=== PATIENT | male | born 1945 | race Hispanic/Latino ===

== ENCOUNTER → 2017-09-17 | Outpatient (CLI) | payer MEDICARE | END | disposition home or self-care (01) | LOC: RAH 12:12 | PROVIDERS: ATTEND Family Medicine | DX: I82.412 Acute embolism and thrombosis of left femoral vein (principal); I82.432 Acute embolism and thrombosis of left popliteal vein; I82.492 Acute embolism and thrombosis of other specified deep vein of left lower extremity; E11.9 Type 2 diabetes mellitus without complications; E78.5 Hyperlipidemia, unspecified; E03.9 Hypothyroidism, unspecified; M81.0 Age-related osteoporosis without current pathological fracture; Z96.642 Presence of left artificial hip joint | CPT/HCPCS: 93971 ==

== ENCOUNTER 2024-07-10 15:47 | Emergency (ER) | payer MEDICARE ==
[~2024-07-10] VITALS: Ht 162.6 cm; Wt 79.4 kg
--- NOTE | 2024-07-10 16:05 | ERN ---
ED Note History of Present Illness Stated Complaint: CONSTIPATED X 3 DAYS Chief Complaint: Constipation Time Seen by MD: 15:50 Dictation: PATIENT IS A 78-YEAR-OLD MALE HERE WITH COMPLAINTS OF CONSTIPATION X3 DAYS WITH LEFT LOWER QUADRANT TENDERNESS. HE DENIES FEVER CHILLS NAUSEA VOMITING NO CHANGE IN URINATION AND NO FLANK PAIN. STATES HE HAS TRIED [id number] MEDICATIONS TO INCLUDE DULCOLAX SUPPOSITORY THAT HAS NOT WORKED. STATES WHEN HE HAD SEEN HIS DOCTOR IN THE PAST, HE WAS STARTED ON MIRALAX WHICH DONE NOW TO HE LP WITH THE CONSTIPATION. DENIES HISTORY OF DIVERTICULAR DISEASE. Allergies: Coded Allergies: No Known Drug Allergies (Unverified Allergy, 04/21/13) Past Medical History Past Medical History: Constipation, Diabetes-Type II, High Cholesterol, Heart Disease, Hypertension Surgical History: Other Surgical History Other: HIP REPLACEMENT RN Note Reviewed/Agreed w/PFSH: Yes Review of System Dictation CONSTITUTIONAL: NEGATIVE EXCEPT FOR HPI HEAD/FACE: NEGATIVE EXCEPT FOR HPI EENT: NEGATIVE EXCEPT FOR HPI RESPIRATORY: NEGATIVE EXCEPT FOR HPI GASTROINTESTINAL/ABDOMINAL: NEGATIVE EXCEPT FOR HPI CONSTIPATION WITH LEFT LOWER QUADRANT TENDERNESS GENITOURINARY: NEGATIVE EXCEPT FOR HPI MUSCULOSKELETAL: NEGATIVE EXCEPT FOR HPI INTEGUMENTARY: NEGATIVE EXCEPT FOR HPI NEUROLOGICAL/PSYCH: NEGATIVE EXCEPT FOR HPI HEMATOLOGIC/LYMPHATIC: NEGATIVE EXCEPT FOR HPI ALL SYSTEMS NEGATIVE, EXCEPT NOTED ABOVE. 13 POINT REVIEW OF SYSTEMS ASSESSED AND ALL NEGATIVE EXCEPT FOR ABOVE. Initial Vital Sign VS Vital Signs Date Time Temp Pulse Resp B/P (MAP) Pulse Ox O2 Delivery O2 Flow Rate FiO2 07/10/24 15:48 98.1 80 16 143/111 0 Room Air 0 07/10/24 16:15 21 Physical Exam Dictation VITAL SIGNS REVIEWED GENERAL APPEARANCE: ALERT, ORIENTED X 3, MILD ACUTE DISTRESS, WELL DEVELOPED, NOURISHED. HEAD AND FACE: NON-TRAUMATIC. EYES: PERRL, PINK CONJUNCTIVAS, EYELID NO TRAUMA, ANTERIOR CHAMBER WITH ARCUS SENILIS. EARS: PINNAS INTACT AND NO SIGNS OF TRAUMA OR ERYTHEMA EAR CANALS CLEAR AND NO DISCHARGE TM NO ERYTHEMA NOSE: NO DISCHARGE, NO BLEEDING. OROPHARYNX: MOUTH NORMAL, TONGUE PINK, PHARYNX CLEAR,NO ERYTHEMA, TONSILS NO EXUDATES, NO ABSCESSES NOTED, MUCOUS MEMBRANE MOIST NECK: SUPPLE, NON-TENDER, NO THYROMEGALY, NO MASSES, NO JVD, NO BRUITS BREAST:DEFERRED CHEST:NO TENDERNESS, NO CREPITUS, NO PARADOXICAL MOVEMENT, NO RETRACTIONS LUNGS:CLEAR, WELL-VENTILATED, SYMMETRIC, NO RALES, NO WHEEZING, NO RHONCHI, NO STRIDOR, GOOD BREATH SOUNDS BILATERALLY HEART: REGULAR RATE, REGULAR RHYTHM, NO MURMUR, NO GALLOPS VASCULAR: NO PERIPHERAL EDEMA, ABDOMEN: SOFT, POSITIVE BOWEL SOUNDS, NONDISTENDED, NO GUARDING, LEFT LOWER QUADRANT TENDERNESS WITH DIMINISHED BOWEL SOUNDS RECTAL: DEFERRED GENITAL: DEFERRED NEUROLOGICAL: NORMAL SPEECH, MOTOR FUNCTION INTACT, SENSORY FUNCTION INTACT MUSCULOSKELETAL: NECK NONTENDER, FULL RANGE OF MOTION, BACK NONTENDER, FULL RANGE OF MOTION, EXTREMITIES: NONTENDER, FULL RANGE OF MOTION SKIN: COLOR PINK, DRY, NO TURGOR, NO RASH, NO LACERATIONS, NO ABRASIONS, NO CONTUSIONS. LYMPHATIC: DEFERRED Results (Laboratory/Radiology) Laboratory/Radiology Laboratory Tests Test 07/10/24 16:27 07/10/24 17:10 White Blood Count 8.0 K/uL (4.8-10.8) Red Blood Count 4.15 MIL/uL (4.50-6.20) L Hemoglobin 13.8 g/dL (14.0-18.0) L Hematocrit 40.8 % (42-54) L Mean Corpuscular Volume 98.3 fL (79-99) Mean Corpuscular Hemoglobin 33.3 pg (27.0-33.0) H Mean Corpuscular Hemoglobin Concent 33.8 g/dL (32.0-36.0) Red Cell Distribution Width 13.4 % (11.0-15.5) Platelet Count 230 K/uL (130-400) Mean Platelet Volume 9.8 fL (7.5-10.5) Immature Granulocyte % (Auto) 0.4 % (0-1) Neutrophils (%) (Auto) 52.9 % (40.0-77.0) Lymphocytes (%) (Auto) 32.1 % (21.0-51.0) Monocytes (%) (Auto) 11.7 % (3.0-13.0) Eosinophils (%) (Auto) 2.4 % (0.0-8.0) Basophils (%) (Auto) 0.5 % (0.0-5.0) Neutrophils # (Auto) 4.3 K/uL (1.8-7.7) Lymphocytes # (Auto) 2.6 K/uL (1.0-4.8) Monocytes # (Auto) 0.9 K/uL (0.1-1.0) Eosinophils # (Auto) 0.19 K/uL (0.00-0.70) Basophils # (Auto) 0.04 K/uL (0.00-0.20) Absolute Immature Granulocyte (auto 0.03 K/uL (0-1) Nucleated Red Blood Cells 0.0 % (0.0-0.19) Sodium Level 136 mmol/L (136-145) Potassium Level 4.8 mmol/L (3.5-5.1) Chloride Level 101 mmol/L (101-111) Carbon Dioxide Level 29 mmol/L (21-32) Blood Urea Nitrogen 23 mg/dL (7-18) H Creatinine 1.1 mg/dL (0.5-1.3) Glomerular Filtration Rate Calc 69 mL/min (>90) Random Glucose 184 mg/dL (70-105) H Total Calcium 8.9 mg/dL (8.5-10.1) Lipase 29 U/L (16-77) Urine Color LIGHT-YELLOW (YELLOW) Urine Appearance CLEAR (CLEAR) Urine pH 5.5 (5.0-8.0) Urine Specific Tensed 1.026 (1.001-1.031) Urine Protein NEGATIVE mg/dL (NEGATIVE) Urine Glucose (UA) >=1000 mg/dL (NEGATIVE) H Urine Ketones 5 mg/dL (NEGATIVE) H Urine Occult Blood NEGATIVE (NEGATIVE) Urine Nitrate NEGATIVE (NEGATIVE) Urine Bilirubin NEGATIVE mg/dL (NEGATIVE) Urine Urobilinogen 0.2 mg/dL (0.2-1.0) Urine Leukocyte Esterase NEGATIVE Roseanna/uL Urine RBC 0-1 /HPF (0-1) Urine WBC 0-1 /HPF (0-1) Urine Bacteria None /HPF (None Seen) OMEN/PELVIS W/CONTRAST HISTORY: Pain COMPARISON: None TECHNIQUE: Multiple sequential axial images of the abdomen and pelvis were obtained from the dome of the diaphragm through symphysis pubis. Patient was not given contrast through intravenous route. Oral contrast was not given. FINDINGS: No pleural effusion is seen bilaterally. There is no evidence of parenchymal disease or pulmonary nodule of the visualized lower lungs. Degenerative changes of the thoracolumbar spine are present. The heart is not enlarged. Gallbladder is distended. There is right renal cyst measuring 18 mm. The liver, spleen, adrenal glands and pancreas are unremarkable. There is no evidence of hydronephrosis bilaterally. No evidence of renal stone is seen. Fecal material is seen in the colon. There are normal size retroperitoneal and mesenteric lymph nodes. No ascites is seen. Atherosclerotic changes are present. Pelvic sidewalls are symmetric bilaterally. Postop changes are seen of the left hip causing artifacts limiting evaluation. Bladder is well distended without wall thickening. IMPRESSION: 1. Large amount of fecal material is seen in the colon. Labs Reviewed?: Yes ED Course ED Course Orders Procedure Category Date Status Time Cbc With Differential LAB 07/10/24 Complete 16:02 Urinalysis Profile LAB 07/10/24 Complete 16:02 Ct Abdomen/Pelvis CT 07/10/24 Resulted W/Contrast 16:02 0.9%Nacl 1000ml (Ns PHA 07/10/24 Complete 1000ml) 16:30 Ketorolac PHA 07/10/24 Complete Tromethamine 15mg/Ml 16:30 Lipase LAB 07/10/24 Complete 16:02 Basic Metabolic Panel LAB 07/10/24 Complete 16:02 Iohexol (Omnipaque) PHA 07/10/24 Complete 16:54 Lactulose 20 Gm/30 Ml PHA 07/10/24 Verified Udcup (Constulose 19:00 Bisacodyl (Dulcolax) PHA 07/10/24 Verified 19:00 Current Medications Medications (Trade) Dose Ordered Sig/Joe Route PRN Reason Start Time Stop Time Status Last Admin Dose Admin Iohexol (Omnipaque) 75 ml STK-MED ONCE IV 07/10/24 16:54 07/10/24 16:55 DC Ketorolac Tromethamine (toRADol) 15 mg ONCE ONCE IV 07/10/24 16:30 07/10/24 16:31 DC 07/10/24 16:26 Sodium Chloride 1,000 ml @ 0 mls/hr ONCE ONCE IV 07/10/24 16:30 07/10/24 16:31 DC 07/10/24 16:26 Vital Signs Date Time Temp Pulse Resp B/P (MAP) Pulse Ox O2 Delivery O2 Flow Rate FiO2 07/10/24 17:15 98.1 78 16 140/70 98 Room Air* 0 21 07/10/24 16:15 98.2 80 16 148/72 98 Room Air* 0 21 07/10/24 15:48 98.1 80 16 143/111 0 Room Air 0 EIGHTEEN 40 PATIENT WILL BE GIVEN LACTULOSE AND DULCOLAX SUPPOSITORY PRIOR TO DISCHARGE HOME CT DEMONSTRATES LARGE AMOUNT OF FECAL STOOL WITHOUT IMPACTION. Medical Decision Making MDM MDM: DIFFERENTIAL DIAGNOSIS: DIVERTICULITIS/HERNIA/CONSTIPATION WITH HAS URINARY TRACT INFECTION/ELECTROLYTE IMBALANCE RATIONALE: TESTS CONSIDERED AND ORDERED SECONDARY TO SHARED DECISION MAKING INCLUDE:/[facility] RADIOLOGY/LABS PREVIOUS OUTSIDE RECORDS REVIEWED: OLD ER VISITS. RISK OF COMPLICATION AND/OR MORBIDITY OR MORTALITY OF PATIENT MANAGEMENT: NONE MEDICATIONS-PER MEDICATION RECONCILIATION NEED FOR HOSPITALIZATION: PATIENT DOES NOT MEET CRITERIA FOR HOSPITALIZATION. NO NEED FOR EMERGENCY MAJOR/MINOR SURGERY: NO THERE ARE NO SOCIAL CONCERNS WITH THIS PATIENT. PRESCRIPTION DRUG MANAGEMENT GOLYTELY PRESCRIPTIONS WILL INCLUDE SYMPTOMATIC CARE PATIENT'S PRIOR EXTERNAL MEDICAL RECORDS FROM OTHER ER VISITS WERE REVIEWED BY ME INDICATED. PRIOR TESTING AND RESULTS FROM PREVIOUS VISITS WERE REVIEWED. PRIOR TESTS WERE TAKEN INTO ACCOUNT WITH MEDICAL DECISION MAKING AND RESOURCE UTILIZATION, INDEPENDENT HISTORIAN/HISTORIANS WERE USED TO OBTAIN COMPLETE MEDICAL HISTORY. I INDEPENDENTLY INTERPRETED THE TEST THAT WERE PERFORMED, RESULTS WERE REVIEWED BY ME AND CONSIDERED FINDINGS ON RADIOLOGY IF ORDERED. MEDICAL MANAGEMENT AND EXAMINATION INTERPRETATION DISCUSSIONS WERE HAD BY ME WITH OTHER QUALIFIED HEALTHCARE PROFESSIONALS INDICATED FOR THE PATIENT'S CARE. DX & DISP Disposition: Discharge Departure Impression: Primary Impression: Acute constipation Additional Impressions: Uncontrolled diabetes mellitus, Mild dehydration Condition: Stable Scripts Peg 3350/Na Sulf,Bicarb,Cl/KCl (Golytely/Colyte Soln) 236-22.74G Soln 0 PO AD, #4000 ML 0 Refills DRINK ONE CUP EVERY 10 MINUTES UNTIL STOOLS ARE CLEAR. Prov: ROBERT SALINAS MANAGER INTENSIVE CARE 07/10/24 Additional Instructions: FOLLOW-UP WITH PRIMARY CARE PROVIDER IN 1 TO 2 DAYS. TAKE MEDICATIONS DIRECTED HERE IN THE EMERGENCY ROOM. OKAY TO CONTINUE HOME MEDICATIONS UNLESS OTHERWISE DISCUSSED DURING YOUR VISIT IN THE EMERGENCY ROOM TODAY. RETURN TO YOUR NEAREST EMERGENCY ROOM IF SYMPTOMS WORSEN OR IF THERE IS NO IMPROVEMENT. CALL 911 IF YOU NEED IMMEDIATE ASSISTANCE. TAKE TYLENOL OR MOTRIN [id number] NEEDED AND IF NO CONTRAINDICATIONS ARE PRESENT. INCREASE ORAL HYDRATION. A WOUND CULTURE OR URINE CULTURE WAS ORDERED HERE IN [facility] DEPARTMENT PLEASE FOLLOW-UP WITH PRIMARY CARE PROVIDER AND ADVISE THEM TO GET REPEAT PORTS FROM OUR FACILITY. IF YOU HAD ANY BARBER WRAP/SPLINTS THAT WERE APPLIED HERE, PLEASE DO NOT REMOVE THEM UNTIL YOU SEE YOUR PRIMARY CARE OR SPECIALTY. USE GOLYTELY DIRECTED UNTIL YOUR STOOLS ARE CLEAR. START A HIGH-FIBER DIET INCLUDING METAMUCIL/[id number] TSP IN8 OZ OF WATER AT BEDTIME. THIS IS AFTER YOUR STOOLS ARE CLEAR AND USING GOLYTELY. SEE YOUR PRIMARY CARE DOCTOR FOR FOLLOW UP Referrals: BANDAR SILVA MD (PCP) Time of Disposition: 18:41 I have reviewed the case, and I agree with, Diagnosis and Plan ROBERT SALINAS NP Jul 10, 2024 16:05
--- NOTE | 2024-07-10 16:09 | NUR ---
PATIENT IN ER LOBBY. PENDING GFR RESULTS, IV SITE, & CONSENT FOR CT EXAM.
[2024-07-10] MEDS: 0.9%NACL 1000ML 1,000 ML IV ONE (16:26)
[2024-07-10] MEDS: ketOROlac 15MG/ML VIAL (15MG/ML) IV ONE (16:26)
[2024-07-10 16:34] LABS: BASOPHILS # (AUTO) 0.04 K/uL (0.00-0.20); BASOPHILS % (AUTO) 0.5 % (0.0-5.0); EOSINOPHILS # (AUTO) 0.19 K/uL (0.00-0.70); EOSINOPHILS % (AUTO) 2.4 % (0.0-8.0); HEMATOCRIT 40.8 % (42-54); IMMATURE GRANULOCYTE ABSOLUTE 0.03 K/uL (0-1); LYMPHOCYTES # (AUTO) 2.6 K/uL (1.0-4.8); LYMPHOCYTES % (AUTO) 32.1 % (21.0-51.0); MEAN CORPUSCULAR HEMOGLOBIN 33.3 pg (27.0-33.0); MEAN CORPUSCULAR HGB CONC 33.8 g/dL (32.0-36.0); MEAN CORPUSCULAR VOLUME 98.3 fL (79-99); MONOCYTES # (AUTO) 0.9 K/uL (0.1-1.0); MONOCYTES % (AUTO) 11.7 % (3.0-13.0); NEUTROPHILS # (AUTO) 4.3 K/uL (1.8-7.7); NEUTROPHILS % (AUTO) 52.9 % (40.0-77.0); PLATELET COUNT (AUTO) 230 K/uL (130-400); RED BLOOD CELL COUNT(AUTO) 4.15 MIL/uL (4.50-6.20); RED CELL DISTRIBUTION WIDTH 13.4 % (11.0-15.5)
[2024-07-10 16:43] LABS: CREATININE 1.1 mg/dL (0.5-1.3); POTASSIUM 4.8 mmol/L (3.5-5.1)
[2024-07-10] MEDS ORDERED: IOHEXOL-350 75 ML VIAL IV ONE (16:54)
[2024-07-10 17:46] LABS: APPEARANCE,URINE CLEAR (CLEAR); BILIRUBIN,URINE NEGATIVE (NEGATIVE); COLOR,URINE LIGHT-YELLOW (YELLOW); GLUCOSE, URINE (UA) >=1000 mg/dL (NEGATIVE); KETONES,URINE 5 mg/dL (NEGATIVE); LEUKOCYTE ESTERASE ,URINE NEGATIVE Leu/uL (NEGATIVE); NITRATE,URINE NEGATIVE (NEGATIVE); OCCULT BLOOD,URINE NEGATIVE (NEGATIVE); PH,URINE 5.5 (5.0-8.0); PROTEIN,URINE NEGATIVE (NEGATIVE); UROBILINOGEN,URINE 0.2 mg/dL (0.2-1.0)
[2024-07-10 17:50] LABS: ADD UA MICROSCOPIC YES
[2024-07-10 17:52] LABS: RBC,URINE 0-1 /HPF (0-1); WBC,URINE 0-1 /HPF (0-1)
--- NOTE | 2024-07-10 18:22 | HMCIMG ---
CT ABDOMEN/PELVIS W/CONTRAST HISTORY: Pain COMPARISON: None TECHNIQUE: Multiple sequential axial images of the abdomen and pelvis were obtained from the dome of the diaphragm through symphysis pubis. Patient was not given contrast through intravenous route. Oral contrast was not given. FINDINGS: No pleural effusion is seen bilaterally. There is no evidence of parenchymal disease or pulmonary nodule of the visualized lower lungs. Degenerative changes of the thoracolumbar spine are present. The heart is not enlarged. Gallbladder is distended. There is right renal cyst measuring 18 mm. The liver, spleen, adrenal glands and pancreas are unremarkable. There is no evidence of hydronephrosis bilaterally. No evidence of renal stone is seen. Fecal material is seen in the colon. There are normal size retroperitoneal and mesenteric lymph nodes. No ascites is seen. Atherosclerotic changes are present. Pelvic sidewalls are symmetric bilaterally. Postop changes are seen of the left hip causing artifacts limiting evaluation. Bladder is well distended without wall thickening. IMPRESSION: 1. Large amount of fecal material is seen in the colon. CT was performed with one or more following dose reduction techniques: automated exposure control, adjustment of the mA and kv according to patient's size, or use of a iterative reconstruction technique.
[2024-07-10 18:30] VITALS: BP 138/64; PULSE 80; RESP 16; TEMP 98.1; O2SAT 0
[2024-07-10] MEDS ORDERED: GOLY4L PO (18:42)
--- NOTE | 2024-07-10 18:50 | NUR ---
PATIENT REPORTS BM PRIOR TO DISCHARGE
[2024-07-10] MEDS: LACTULOSE 20 GM/30 ML UDCUP PO ONE (18:59)
[2024-07-10] MEDS: BisaCODYL 10 MG SUPP.RECT RC ONE (18:59)
== END 2024-07-10 19:07 | disposition home or self-care (01) ==
LOC: EDH 15:47
DX: K59.09 Other constipation (principal); E11.65 Type 2 diabetes mellitus with hyperglycemia; E86.0 Dehydration; E78.00 Pure hypercholesterolemia, unspecified; I10 Essential (primary) hypertension
CPT/HCPCS: 99285; 74177; 96374; 96361; 80048; 83690; 85025; 81001; 36415; J1885; J7030; Q9967

== ENCOUNTER → 2025-05-13 | Outpatient (CLI) | payer MEDICARE ==
[~2025-05-13] MED LIST: GOLY4L PO
--- NOTE | 2025-05-14 10:20 | HMCIMG ---
EXAM: CR CHEST, 1 VIEW CLINICAL HISTORY: Chronic Ischemic Heart Disease COMPARISON:None TECHNIQUE: Single frontal radiograph of the chest was obtained. FINDINGS: Lines/Devices: None. Lungs: Few fibrobronchiectatic changes seen in left upper lobe (apical region). Few atelactatic bands in left lung base. No consolidation or ground-glass opacities are observed. There is no pleural effusion. There is no pneumothorax. Mediastinum and cardiovascular structures: The cardiac silhouette is not enlarged. The central airway and mediastinal contours are unremarkable. Bones and soft tissues: Reduced bone density. Subtle curvature of thoracic spine - likely positional. IMPRESSION: 1. Mild fibrobronchiectatic changes in left lung apex. 2. No acute lung pathology seen. /[place]
== END | disposition home or self-care (01) ==
LOC: RAH 13:37
PROVIDERS: ATTEND Family Medicine
DX: J47.9 Bronchiectasis, uncomplicated (principal); I25.9 Chronic ischemic heart disease, unspecified; J98.11 Atelectasis; M43.8X4 Other specified deforming dorsopathies, thoracic region
CPT/HCPCS: 71045